=== PATIENT | female | born 1980 | race African-American/Black ===

== ENCOUNTER 2016-09-27 14:35 | Emergency (ER) | payer BC ==
[~2016-09-27] VITALS: Ht 175.3 cm; Wt 101.5 kg
[~2016-09-27 14:35] MED LIST: ALBUTEROL17 GM IH; FLAGYL500 MG PO; MOTRIN600 MG PO; NUVARING VAGIN1 EACH VG; PERCOCET 5/31 TABLET PO; PROAIR HFA8.5 GM IH; PULMICORT FLE180 MCG IH; SKELAXIN800 MG PO
[2016-09-27] MEDS ORDERED: KEFLEX500 MG PO (15:54)
[2016-09-27] MEDS ORDERED: VYVANSE20 MG PO (15:54)
[2016-09-27] MEDS ORDERED: BENADRYL25 MG PO (15:55)
[2016-09-27 16:59] LABS: HEMATOCRIT 41.4 % (36.0-46.0); MCH 27.8 PG (29.0-34.0); MCHC 33.1 G/DL (30.0-36.0); MCV 84.1 FL (83-99); MEAN PLAT.VOLUME 9.2 uM^3 (9.5-12.4); PLATELET COUNT 412 K/uL (156-360); RBC DIS.WIDTH-CV 12.8 % (11.8-14.6); RBC DIS.WIDTH-SD 38.6 % (39-53); RED BLOOD COUNT 4.92 M/uL (3.80-5.20); WHITE BLOOD COUNT 12.9 K/uL (4.1-10.2)
[2016-09-27 17:14] LABS: CHLORIDE 106 mEq/L (99-109); POTASSIUM 4.8 mEq/L (3.7-5.4); SODIUM 138 mEq/L (136-147)
[2016-09-27 17:16] LABS: GLUCOSE 92 mg/dL (70-99)
[2016-09-27 17:17] LABS: ANION GAP 8 MEQ/L (2-14)
[2016-09-27 17:18] LABS: TOTAL BILIRUBIN 0.5 mg/dL (0.0-1.0)
[2016-09-27 17:19] LABS: ALKALINE PHOSPHATASE 158 IU/L (3-129)
[2016-09-27 17:20] LABS: GFR ESTIMATE (CALCULATED) > 59 mL/min/
[2016-09-27 17:21] LABS: UREA NITROGEN (BUN) 11 mg/dL (9-23)
[2016-09-27] MEDS ORDERED: BACTRIM,SEPT1 TABLET PO (17:55)
[2016-09-27 18:36] VITALS: BP 127/82
== END 2016-09-27 18:36 | disposition home or self-care (01) ==
LOC: EME 14:35
PROVIDERS: Nurse Practitioner Family
DX: L03.90 Cellulitis, unspecified (principal); W57.XXXA Bitten or stung by nonvenomous insect and other nonvenomous arthropods, initial encounter
CPT/HCPCS: 80053; 85027; 87070; 87075; 87205; 99281; 99284